=== PATIENT | female | born 1940 | race African-American/Black ===

== ENCOUNTER → 2016-11-09 | Outpatient (CLI) | payer MEDICARE ==
[~2016-11-09] MED LIST: FLEXERIL10 MG PO; LORTAB 5/500 TA1 TA1 PO; LOTENSIN HCT 201 TAB PO; LOTENSIN20 MG PO; NORVASC PO; PERCOCET5/325 PO; POLYGESIC 5/5001 CAP PO; PRILOSEC40 MG PO; ZOCOR PO
--- NOTE | ~2016-11-09 | US128 ---
[id number] [facility] [address] [place], [place] [address] [id number] O MR#: [id number] Acc #: [id number] NAME: NANCY SORENSEN : 1940 SEX: F STUDY DATE/TIME: 11/09/2016 13:06 UNIT: CGUS ROOM: STUDY DESCRIPTION: Thyroid Attending Physician: Noel Carolina M.D. Referring Physician: Noel Carolina M.D. Ordering Physician: Noel Carolina M.D. Primary Care Physician: Noel Carolina M.D. MEDICAL IMAGING REPORT This report is preliminary unless electronic signature is present EXAM Thyroid ultrasound 11/09/2016 HISTORY Thyroid nodule identified at health screening. COMPARISON STUDIES Cervical spine MRI 08/24/2016. Chest CT 09/28/2015. Head and neck CT angiogram 03/19/2012. FINDINGS There are several right thyroid nodules, the largest of which is solid, mid- to lower pole, measuring 2.1 x 1.4 x 1.9 cm. There is a lower pole solid 1.8 x 1.1 x 1.5 cm nodule as well and a subcentimeter lower pole 9 mm nodule. These are generally ISO to hypovascular. On the left, there are several nodules, 1 in the mid to lower pole, about 1.5 x 1.5 x 1.2 cm, as well as additional subcentimeter nodules. IMPRESSION 1. Multiple thyroid nodules. They are seen on both the right and left lobes of the gland. The thyroid has appeared enlarged dating back to head and neck CT angiogram of 2011. 2. Most of the nodules are under a centimeter in size. Of the 3 nodules greater than a centimeter in size, the largest is in the right mid- to lower pole, solid and about 2.1 x 1.4 x 1.9 cm. It would probably be prudent to sample the largest of the 3 nodules over a centimeter in size and then continue surveillance ultrasound for the remaining nodules subsequent to that. Dictated by... Augie Riojas M.D. THIS IS AN ELECTRONICALLY VERIFIED REPORT Augie Riojas M.D. at 11/09/2016 10:44 PM TEV/pcl TD: 11/09/2016 20:09 JOB #: [id number] MEDICAL IMAGING REPORT COPY
--- NOTE | ~2016-11-09 | MY11 ---
[facility] A Service of [place] & [facility] RADIOLOGY TEXT RESULTS PATIENT: NANCY SORENSEN LOCATION: [facility] : [birth year] UNIT #: [id number] AGE: [address]: Noel Carolina MD SEX: F ORDER DR: [id number] [facility] [address] [place], [place] [address] [id number] O MR#: [id number] Acc #: [id number] NAME: NANCY SORENSEN : 1940 SEX: F STUDY DATE/TIME: 11/09/2016 14:16 UNIT: CGUS ROOM: STUDY DESCRIPTION: MY Mammogram Screening Dig Francis Attending Physician: Noel Carolina M.D. Referring Physician: Noel Carolina M.D. Ordering Physician: Noel Carolina M.D. Primary Care Physician: Noel Carolina M.D. MEDICAL IMAGING REPORT This report is preliminary unless electronic signature is present EXAM Screening mammogram 11/09/2016 INDICATIONS 76-year-old with history of right side breast cancer status post lumpectomy and radiation therapy. No current complaints. Digital mL and MLO views of both breasts were obtained in addition to a right true lateral view. Study reviewed with an FDA-approved CAD device. COMPARISON STUDIES Comparison is made with 09/28/2015, 04/27/2014 FINDINGS Breast parenchyma shows scattered fibroglandular densities. No new masses or suspicious microcalcifications are seen. Therapy changes in the right breast are stable. Benign calcifications in the right breast are also stable. IMPRESSION Benign mammogram. Followup exam in 1 year recommended. Patients over the age of 40 are entered into a reminder system with target due date for the next mammogram. A result letter will also be sent to the patient. BIRADS: 2 - Benign finding Dictated by... Ari Gómez Jr., M.D. THIS IS AN ELECTRONICALLY VERIFIED REPORT Ari Gómez Jr., M.D. at 11/09/2016 4:53 PM [facility] A Service of [place] & [facility] RADIOLOGY TEXT RESULTS PATIENT: NANCY SORENSEN LOCATION: [facility] : [birth year] UNIT #: [id number] AGE: [address]: Noel Carolina MD SEX: F ORDER DR: John TD: 11/09/2016 16:23 JOB #: [id number] MEDICAL IMAGING REPORT COPY
== END | disposition home or self-care (01) ==
LOC: CGUS 12:42
DX: Z12.31 Encounter for screening mammogram for malignant neoplasm of breast (principal); E04.1 Nontoxic single thyroid nodule; E04.2 Nontoxic multinodular goiter; Z85.3 Personal history of malignant neoplasm of breast; Z98.890 Other specified postprocedural states; Z92.3 Personal history of irradiation
CPT/HCPCS: 76536; G0202

== ENCOUNTER → 2016-11-21 | Outpatient (CLI) | payer MEDICARE ==
--- NOTE | ~2016-11-21 | XA230 ---
[facility] A Service of [facility] RADIOLOGY TEXT RESULTS PATIENT: NANCY SORENSEN LOCATION: [facility] : 40 UNIT #: [id number] AGE: [address]: Noel Carolina MD SEX: F ORDER DR: [id number] [facility] [address] [place], [place] [address] [id number] O MR#: [id number] Acc #: [id number] NAME: NANCY SORENSEN : 1940 SEX: F STUDY DATE/TIME: 11/21/2016 11:40 UNIT: [facility] ROOM: STUDY DESCRIPTION: XA FNA Attending Physician: Noel Carolina M.D. Referring Physician: Noel Carolina M.D. Ordering Physician: Noel Carolina M.D. Primary Care Physician: Noel Carolina M.D. MEDICAL IMAGING REPORT This report is preliminary unless electronic signature is present EXAM Fine-needle aspiration of a right thyroid nodule under ultrasound guidance. INDICATIONS 76-year-old female with multiple thyroid nodules. She has a dominant right thyroid nodule measuring about 2.1 cm and FNA of this nodule was requested. The risks, benefits, and alternatives procedure were discussed the patient and informed consent was obtained. In the procedure room a time-out was performed confirming correct patient and procedure. All elements of maximum sterile-barrier technique utilized according guidelines appropriate for the procedure. TECHNIQUE/FINDINGS Ultrasound of the right lobe of the thyroid was performed. The dominant nodule was identified. The overlying skin was prepped and draped in the usual sterile fashion. 1% lidocaine was utilized to anesthetize the skin and underlying subcutaneous tissues. Next under ultrasound guidance, fine-needle aspiration of this dominant 2 cm nodule was performed using 4-25 gauge needles. Samples sent to pathology. Patient tolerated procedure well without immediate complications. IMPRESSION Technically successful fine needle aspiration of a dominant right thyroid nodule. Dictated by... Terrance Faulkner M.D. THIS IS AN ELECTRONICALLY VERIFIED REPORT Terrance Faulkner M.D. at 11/23/2016 7:33 AM ARS/dj STS. [facility] A Service of [facility] RADIOLOGY TEXT RESULTS PATIENT: NANCY SORENSEN LOCATION: [facility] #: [id number] : [birth year] UNIT #: [id number] AGE: [address]: Noel Carolina MD SEX: F ORDER DR: TD: 11/22/2016 06:52 JOB #: [id number] MEDICAL IMAGING REPORT COPY
== END | disposition home or self-care (01) ==
LOC: CIVR 10:08
PROC: 0GBH3ZX Excision of Right Thyroid Gland Lobe, Percutaneous Approach, Diagnostic (ICD-10-PCS; principal; 2016-11-21)
DX: E04.1 Nontoxic single thyroid nodule (principal); Z85.3 Personal history of malignant neoplasm of breast
CPT/HCPCS: 76942; 88172; 88173; 88305